=== PATIENT | female | born 1950 | race Hispanic/Latino ===

== ENCOUNTER 2018-09-18 10:12 | Outpatient (CLI) | payer OTHER ==
--- NOTE | 2018-09-18 10:31 | RAD ---
EXAM: Two views chest PROVIDED CLINICAL HISTORY: Cough COMPARISON: None 13 2010 FINDINGS: Cardiac silhouette is appear mildly enlarged. Pulmonary vasculature is at the upper limits of normal. No consolidation or pleural fluid is seen. The osseous structures have a normal appearance.Vascular calcific lesions are seen in the thoracic aorta. Surgical clips overlie the right axillary region. No other interval change. IMPRESSION: 1. Cardiomegaly with borderline increase in pulmonary vasculature..
== END 2018-09-18 10:13 | disposition home or self-care (01) ==
LOC: MADRAD 10:12
PROVIDERS: ATTEND Physician Assistant
DX: R05 Cough (principal); I51.7 Cardiomegaly
CPT/HCPCS: 71046

== ENCOUNTER 2021-05-30 12:56 | Emergency (ER) | payer SELFPAY ==
[2021-05-30] MEDS ORDERED: Iopamidol 370 76% 125 ML VIAL FS ONE (12:57)
[2021-05-30] MEDS ORDERED: Adenosine 6 MG/2 ML VIAL ONE (13:23)
[2021-05-30] MEDS ORDERED: Lactated Ringer's 1,000 ML ONE (13:24)
[2021-05-30 13:31] LABS: #Basophils 0.1 thou/uL (0.0-0.2); #Lymphocytes 1.8 thou/uL (1.20-3.40); #Monocytes 0.7 thou/uL (0.11-0.59); #Neutrophils 9.6 thou/uL (1.40-6.50); %Basophils 0.7 % (0.0-1.0); %Eosinophils 0.3 % (0.0-10.0); Hemoglobin 15.6 g/dL (12.0-16.0); Mean Corpuscular HGB CONC 31.9 g/dL (32.0-36.0); Mean Corpuscular Hemoglobin 29.7 pg (27.0-31.0); Mean Corpuscular Volume 93.1 fL (78.0-98.0); Mean Platelet Volume 8.9 fL (7.4-10.4); Platelet Count 280 thou/uL (130-400); RBC Distribution Width 11.7 % (11.5-14.5); Red Blood Cell (RBC) Count 5.24 mill/uL (4.20-5.40); White Blood Cell (WBC) Count 12.2 thou/uL (4.8-10.8)
[2021-05-30] MEDS ORDERED: Aspirin Chewable 81 MG TAB ONE (13:38)
[2021-05-30 13:43] LABS: ALT (SGPT) 13 U/L (8-55); AST (SGOT) 19 U/L (5-34); Alkaline Phosphatase 124 U/L (40-110); Anion Gap 19 mmol/L (10-20); BUN (Urea Nitrogen) 46 mg/dL (9.8-20.1); Calc. Creatinine Clearance 0 mL/min (70-130); Calcium 10.9 mg/dL (7.8-10.44); Carbon Dioxide 25 mmol/L (23-31); Chloride 90 mmol/L (98-107); Globulin 4.2 g/dL (2.4-3.5); Potassium 4.1 mmol/L (3.5-5.1); Protein, Total 8.2 g/dL (5.8-8.1); Sodium 130 mmol/L (136-145)
[2021-05-30 14:04] LABS: CKMB 3.2 ng/mL (0-6.6)
[2021-05-30 14:16] LABS: Glucose 554 mg/dL (80-115)
[2021-05-30 15:12] LABS: INR-International Normal Ratio 0.9; Prothrombin Time 12.7 sec (12.0-14.7)
[2021-05-30 15:13] LABS: PTT 30.7 sec (22.9-36.1)
[2021-05-30] MEDS ORDERED: Amiodarone 150 MG/3 ML VIAL ONE (15:44)
[2021-05-30] MEDS ORDERED: Amiodarone In Dextrose 200 ML ONE (15:44)
[2021-05-30] MEDS ORDERED: Enoxaparin Sodium 80 MG/0.8 ML SYRINGE ONE (16:16)
[2021-05-30] MEDS ORDERED: Insulin Regular 300 UNITS/3 ML VIAL ONE (16:16)
[2021-05-30] MEDS ORDERED: Digoxin 0.5 MG/2 ML AMP ONE (17:24)
[2021-05-30 18:26] LABS: SARS-CoV-2 NAA Rapid Test Not Detected (NotDetected)
[2021-05-30] MEDS ORDERED: Sodium Chloride 0.9% 100 ML ONE (19:12)
[2021-05-30] MEDS ORDERED: cefTRIAXone\\ROCEPHIN 1 GM VIAL ONE (19:12)
[2021-05-30] MEDS ORDERED: Sodium Chloride 0.9% 1,000 ML ONE (19:12)
[2021-05-30 19:48] LABS: CKMB 2.8 ng/mL (0-6.6)
== END 2021-05-30 20:35 | disposition short-term general hospital (02) ==
LOC: MADERS 12:56
DX: I48.91 Unspecified atrial fibrillation (principal); N17.9 Acute kidney failure, unspecified; E11.65 Type 2 diabetes mellitus with hyperglycemia; R77.8 Other specified abnormalities of plasma proteins; D72.829 Elevated white blood cell count, unspecified; E78.5 Hyperlipidemia, unspecified; I10 Essential (primary) hypertension; Z79.84 Long term (current) use of oral hypoglycemic drugs; Z79.82 Long term (current) use of aspirin; Z79.4 Long term (current) use of insulin; Z79.899 Other long term (current) drug therapy
CPT/HCPCS: 36416; 71045; 71275; 80053; 82553; 83605; 83735; 83880; 84443; 84484; 85025; 85610; 85730; 87040; 93005; 94760; 96365; 96372; 96375; 96376; J0153; J0282; J0696; J1160; J1650; J1815; J3490; J7050; J7120; Q9967; U0002

== ENCOUNTER 2024-07-30 11:53 | Outpatient (CLI) | payer OTHER | END 2024-07-30 11:54 | disposition home or self-care (01) | LOC: MADRAD 11:53 | PROVIDERS: ATTEND Family Medicine | DX: R07.89 Other chest pain (principal); I51.7 Cardiomegaly; J90 Pleural effusion, not elsewhere classified | CPT/HCPCS: 71046 ==